=== PATIENT | male | born 1955 | race African-American/Black ===

== ENCOUNTER 2021-01-01 08:01 | Observation (INO) | payer MEDICARE, MEDICAID ==
[2021-01-01] MEDS ORDERED: Lidocaine 1% MPF 2 ML VIAL ONE (08:31)
[2021-01-01 08:58] LABS: Hemoglobin 10.9 g/dL (13.5-17.5); Mean Corpuscular HGB CONC 30.5 g/dL (32.0-36.0); Mean Corpuscular Hemoglobin 31.1 pg (27.0-33.0); Mean Platelet Volume 9.3 fl (7.4-10.4); Platelet Count 214 10x3/uL (150-450); RBC Distribution Width 14.8 % (11.5-14.5); White Blood Cell (WBC) Count 10.3 10x3/uL (3.5-10.5)
[2021-01-01 09:03] LABS: Anion Gap 15 mmol/L (10-20); BUN (Urea Nitrogen) 24 mg/dL (8.4-25.7); Calc. Creatinine Clearance 83 mL/min (70-130); Calcium 9.7 mg/dL (7.8-10.44); Carbon Dioxide 18 mmol/L (23-31); Chloride 109 mmol/L (98-107); Glucose 81 mg/dL (80-115); PTT 29.5 sec (22.0-33.0); Potassium 4.7 mmol/L (3.5-5.1); Prothrombin Time 10.9 sec (9.5-12.1); Sodium 137 mmol/L (136-145)
[2021-01-01] MEDS ORDERED: Dexamethasone 4 mg/ml Vial ONE (09:23)
[2021-01-01] MEDS ORDERED: Ondansetron PF 4 MG/2 ML Vial ONE (09:23)
[2021-01-01] MEDS ORDERED: PROPOFOL 20 ML ONE ×2 (09:23→10:10)
[2021-01-01] MEDS ORDERED: Lidocaine 1% PF 5 ML VIAL ONE (09:23)
[2021-01-01] MEDS ORDERED: Fentanyl 100 MCG/2 ML VIAL ONE ×3 (09:23→12:45)
[2021-01-01] MEDS ORDERED: Neomycin-Polymyxin 1 ML AMP ONE (09:33)
[2021-01-01] MEDS ORDERED: Glycopyrrolate 0.2 MG/ML 5 ML SYRINGE ONE (10:10)
[2021-01-01] MEDS ORDERED: PHENYLEPHRINE-NS 100 MCG/ML 10 ML SYRINGE ONE ×3 (10:51→10:55)
[2021-01-01 10:53] LABS: Bilirubin Neg (Negative); Blood, Urine 250 (Negative); Clarity Cloudy (Clear); Glucose, Urine (Dipstick) Normal (Negative); Ketone, Urine Negative (Negative); Leukocyte 500 (Negative); Nitrite Positive (Negative); Protein, Urine (Dipstick) 100 mg/dl (Neg-Trace); Urobilinogen Normal mg/dL (Less than 2)
[2021-01-01 11:08] LABS: Bacteria/HPF 3+ HPF (None Seen); Squamous Epithelial 0-3 HPF (0-3); WBC/HPF Greater Than 50 HPF (0-3)
[2021-01-01] MEDS ORDERED: CEFAZOLIN 2 GM in Premix Bag 1 BAG IVPB SCH (15:30)
[2021-01-01] MEDS ORDERED: Calcium Carbonate 500 MG TAB PO PRN (15:31)
[2021-01-01] MEDS ORDERED: Loperamide HCl 2 MG CAP PO PRN (15:33)
[2021-01-01] MEDS ORDERED: Polyethylene Glycol 3350 17 GM Packet PO PRN (15:34)
[2021-01-01] MEDS: Morphine 4 MG/ML VIAL SLOW IVP PRN ×3 (15:44→22:45)
[2021-01-01 15:52] VITALS: BMI 26.9
[2021-01-01] MEDS: CEFAZOLIN 2 GM in Premix Bag 1 BAG IVPB SCH (18:17)
[2021-01-01] MEDS: HYDROcodone/Acetaminophen 10/325 mg Tablet PO PRN (18:18)
[2021-01-01] MEDS ORDERED: Gabapentin 300 MG CAP PO SCH (21:00)
[2021-01-01] MEDS: Ascorbic Acid 500 mg Chewable Tablet PO SCH (21:37)
[2021-01-01] MEDS: Gabapentin 400 MG CAP PO SCH (21:37)
[2021-01-02] MEDS: HYDROcodone/Acetaminophen 10/325 mg Tablet PO PRN ×3 (00:36→13:38)
[2021-01-02] MEDS: Morphine 4 MG/ML VIAL SLOW IVP PRN ×5 (02:18→15:01)
[2021-01-02] MEDS: CEFAZOLIN 2 GM in Premix Bag 1 BAG IVPB SCH (02:19)
[2021-01-02 05:35] LABS: Hemoglobin 9.2 g/dL (13.5-17.5)
[2021-01-02] MEDS: Gabapentin 400 MG CAP PO SCH ×2 (07:54→15:00)
[2021-01-02] MEDS: Ascorbic Acid 500 mg Chewable Tablet PO SCH (07:57)
[2021-01-02] MEDS ORDERED: Magnesium Oxide 400 MG TAB PO SCH (09:00)
[2021-01-02] MEDS ORDERED: Cyanocobalamin (Vitamin B-12) 1,000 MCG TAB PO SCH (09:00)
[2021-01-02] MEDS ORDERED: Zinc Gluconate 50 MG TAB PO SCH (09:00)
[2021-01-02] MEDS ORDERED: Multivitamin W/ Minerals 1 TAB PO SCH (09:00)
[2021-01-02 21:04] VITALS: TEMP 99.2
[2021-01-02 21:06] VITALS: BP 107/64
== END 2021-01-02 15:52 ==
LOC: CSHSDC 08:01 → CSHTELE 14:44 → INTOOBSV 14:44
PROVIDERS: ADMIT Orthopaedic Surgery; ATTEND Orthopaedic Surgery
PROC: 0Y6C0Z2 Detachment at Right Upper Leg, Mid, Open Approach (ICD-10-PCS; principal; 2021-01-01)
DX: M00.9 Pyogenic arthritis, unspecified (principal); M86.661 Other chronic osteomyelitis, right tibia and fibula; G82.20 Paraplegia, unspecified; D64.9 Anemia, unspecified; F17.210 Nicotine dependence, cigarettes, uncomplicated; Z79.899 Other long term (current) drug therapy
CPT/HCPCS: 80048; 81001; 85014; 85018; 85027; 85610; 85730; 88307; 93005; 93010; 96374; 96375; 96376; G0378; J0690; J1100; J2270; J2405; J2704; J3010

== ENCOUNTER 2021-09-17 20:41 | Inpatient (IN) | payer MEDICARE, MEDICAID ==
[2021-09-17 22:22] LABS: #Monocytes 1.1 10x3/uL (0.0-1.1); #Neutrophils 10.9 10x3/uL (1.5-8.4); %Basophils 0.2 % (0.0-2.0); %Eosinophils 0.1 % (0.0-6.0); %Lymphocytes 10.4 % (18.0-47.0); %Monocytes 8.2 % (0.0-10.0); Hemoglobin 7.2 g/dL (13.5-17.5); Mean Corpuscular HGB CONC 30.6 g/dL (32.0-36.0); Mean Corpuscular Hemoglobin 27.9 pg (27.0-33.0); Mean Corpuscular Volume 91.1 fl (81.2-95.1); Mean Platelet Volume 8.4 fl (7.4-10.4); Platelet Count 544 10x3/uL (150-450); RBC Distribution Width 17.6 % (11.5-14.5); Red Blood Cell (RBC) Count 2.58 10x6/uL (4.32-5.72); White Blood Cell (WBC) Count 13.8 10x3/uL (3.5-10.5)
[2021-09-17] MEDS: Sodium Chloride 0.9% 1,000 ML IV SCH (22:28)
[2021-09-17 22:29] LABS: Anion Gap 15 mmol/L (10-20); BUN (Urea Nitrogen) 28 mg/dL (8.4-25.7); Calc. Creatinine Clearance 0 mL/min (70-130); Calcium 9.2 mg/dL (7.8-10.44); Chloride 114 mmol/L (98-107); Estimated GFR 85; Glucose 81 mg/dL (80-115); Magnesium 1.5 mg/dL (1.6-2.6); Potassium 5.9 mmol/L (3.5-5.1); Sodium 132 mmol/L (136-145)
[2021-09-17 22:31] LABS: Carbon Dioxide 9 mmol/L (23-31)
[2021-09-17 22:33] LABS: Troponin I Less than 0.010 ng/mL (< 0.028)
[2021-09-17 22:48] LABS: Syphilis Antibody Nonreactive (Nonreactive); Syphilis Antibody Index 0.14 S/CO (<1.00 Non-Reactive)
[2021-09-17 22:53] LABS: Thyroid Stimulating Hormone 0.776 uIU/mL (0.35-4.94)
[2021-09-18] MEDS ORDERED: Dextrose 50% Abboject 50 ML SYRINGE SLOW IVP PRN (01:29)
[2021-09-18] MEDS ORDERED: Insulin Regular 300 UNITS/3 ML VIAL IVP SCH (01:30)
[2021-09-18] MEDS ORDERED: Calcium Gluconate 4.6 MEQ in Sodium Chloride 0.9% 100 ML IVPB SCH (01:30)
[2021-09-18] MEDS ORDERED: D5W IVPB SCH (01:45)
[2021-09-18] MEDS ORDERED: MAGNESIUM SULFATE IVPB SCH (01:45)
[2021-09-18] MEDS ORDERED: Magnesium Sulfate/D5W 1 GM/100 ML BAG IVPB SCH (01:45)
[2021-09-18 02:34] VITALS: BMI 65.4
[2021-09-18] MEDS: Sodium Chloride 0.9% 1,000 ML IV SCH ×2 (03:53→10:25)
[2021-09-18 09:21] LABS: Hemoglobin 6.8 g/dL (13.5-17.5); Mean Corpuscular HGB CONC 31.3 g/dL (32.0-36.0); Mean Corpuscular Hemoglobin 28.7 pg (27.0-33.0); Mean Corpuscular Volume 91.6 fl (81.2-95.1); Mean Platelet Volume 8.1 fl (7.4-10.4); Platelet Count 357 10x3/uL (150-450); RBC Distribution Width 17.6 % (11.5-14.5); Red Blood Cell (RBC) Count 2.37 10x6/uL (4.32-5.72); White Blood Cell (WBC) Count 10.9 10x3/uL (3.5-10.5)
[2021-09-18 09:34] LABS: MDiff Complete? YES; Manual Diff?? YES
[2021-09-18 09:39] LABS: Anion Gap 13 mmol/L (10-20); BUN (Urea Nitrogen) 19 mg/dL (8.4-25.7); Calc. Creatinine Clearance 95 mL/min (70-130); Calcium 8.8 mg/dL (7.8-10.44); Carbon Dioxide 10 mmol/L (23-31); Chloride 117 mmol/L (98-107); Estimated GFR 99; Glucose 89 mg/dL (80-115); Magnesium 1.7 mg/dL (1.6-2.6); Potassium 4.6 mmol/L (3.5-5.1); Sodium 135 mmol/L (136-145)
[2021-09-18 10:03] LABS: Anisocytosis SLIGHT = 6-15 cells (100X) (0-5/hpf); Band 3 % (5-11); Lymphocytes 19 % (21-51); Metamyelocyte 1 % (0-0); Monocytes 11 % (0-10); Neutrophil 65 % (42-75); Platelet Morphology Comment Appears Adequate; Reactive Lymphocytes 1 % (0-10)
[2021-09-18 10:04] LABS: Macrocytosis SLIGHT = 6-15 cells (100X) (0-5/hpf); Microcytosis SLIGHT = 6-15 cells (100X) (0-5/hpf)
[2021-09-18] MEDS ORDERED: Iopamidol 300 61% 100 ML VIAL FS ONE (12:30)
[2021-09-18] MEDS: Enoxaparin Sodium 40 MG/0.4 ML SYRINGE SC SCH (13:49)
[2021-09-18] MEDS ORDERED: HYDROcodone/Acetaminophen 5/325 mg Tablet PO PRN (14:12)
[2021-09-18] MEDS ORDERED: Sodium Bicarbonate 100 MEQ in Dextrose 5% in Water 1,000 ML IV SCH ×2 (14:15)
[2021-09-18] MEDS ORDERED: VANCOMYCIN 1.25 GM/250 ML BAG 1.25 GM in Premix Bag 1 BAG IVPB SCH (15:00)
[2021-09-18] MEDS ORDERED: Sodium Bicarbonate 100 MEQ, Admixture Fee 1 EACH in Dextrose 5% in Water 1,000 ML IV SCH (15:00)
[2021-09-18] MEDS: Lactated Ringer's 1,000 ML IV SCH (15:21)
[2021-09-18] MEDS: cefTRIAXone\\ROCEPHIN 1 GM in Sodium Chloride 0.9% 100 ML IVPB SCH (15:21)
[2021-09-18] MEDS: Ondansetron ODT 4 MG TAB PO PRN (16:34)
[2021-09-18] MEDS ORDERED: Pantoprazole 40 MG VIAL IVP SCH (16:45)
[2021-09-18] MEDS: Sodium Bicarbonate 100 MEQ, Admixture Fee 1 EACH in Dextrose 5% in Water 1,000 ML IV SCH (17:45)
[2021-09-18] MEDS: HYDROcodone/Acetaminophen 5/325 mg Tablet PO PRN ×2 (17:48→21:25)
[2021-09-18] MEDS ORDERED: Vancomycin 1 GM in Premix Bag 1 BAG IVPB SCH (21:00)
[2021-09-19] MEDS: HYDROcodone/Acetaminophen 5/325 mg Tablet PO PRN ×5 (01:32→16:37)
[2021-09-19] MEDS: Lactated Ringer's 1,000 ML IV SCH ×2 (01:34→13:28)
[2021-09-19] MEDS: Sodium Bicarbonate 100 MEQ, Admixture Fee 1 EACH in Dextrose 5% in Water 1,000 ML IV SCH ×2 (04:45→13:22)
[2021-09-19 08:41] LABS: #Basophils 0.1 10x3/uL (0.0-0.2); #Eosinphils 0.1 10x3/uL (0.0-0.5); #Monocytes 1.2 10x3/uL (0.0-1.1); #Neutrophils 7.7 10x3/uL (1.5-8.4); %Basophils 0.4 % (0.0-2.0); %Eosinophils 0.5 % (0.0-6.0); %Lymphocytes 16.7 % (18.0-47.0); %Monocytes 10.5 % (0.0-10.0); %Neutrophils 68.5 % (40.0-75.0); Hemoglobin 7.7 g/dL (13.5-17.5); Mean Corpuscular HGB CONC 32.4 g/dL (32.0-36.0); Mean Corpuscular Hemoglobin 29.2 pg (27.0-33.0); Mean Corpuscular Volume 90.2 fl (81.2-95.1); Mean Platelet Volume 7.9 fl (7.4-10.4); Platelet Count 358 10x3/uL (150-450); RBC Distribution Width 17.3 % (11.5-14.5); Red Blood Cell (RBC) Count 2.64 10x6/uL (4.32-5.72); White Blood Cell (WBC) Count 11.3 10x3/uL (3.5-10.5)
[2021-09-19 08:43] LABS: Anion Gap 15 mmol/L (10-20); BUN (Urea Nitrogen) 15 mg/dL (8.4-25.7); Calc. Creatinine Clearance 83 mL/min (70-130); Calcium 8.8 mg/dL (7.8-10.44); Carbon Dioxide 12 mmol/L (23-31); Chloride 114 mmol/L (98-107); Estimated GFR 95; Glucose 101 mg/dL (80-115); Potassium 4.3 mmol/L (3.5-5.1); Sodium 137 mmol/L (136-145)
[2021-09-19] MEDS: Pantoprazole 40 MG VIAL IVP SCH ×2 (09:17→20:48)
[2021-09-19] MEDS: Enoxaparin Sodium 40 MG/0.4 ML SYRINGE SC SCH (09:19)
[2021-09-19] MEDS: cefTRIAXone\\ROCEPHIN 1 GM in Sodium Chloride 0.9% 100 ML IVPB SCH (13:22)
[2021-09-19] MEDS: Vancomycin HCl 750 MG in Sodium Chloride 0.9% 250 ML 250 ML IVPB SCH (16:36)
[2021-09-19] MEDS ORDERED: HYDROcodone/Acetaminophen 10/325 mg Tablet PO SCH (18:00)
[2021-09-19] MEDS: HYDROcodone/Acetaminophen 10/325 mg Tablet PO PRN (21:00)
[2021-09-20] MEDS: Ondansetron ODT 4 MG TAB PO PRN (00:18)
[2021-09-20] MEDS: HYDROcodone/Acetaminophen 10/325 mg Tablet PO PRN ×6 (01:13→20:55)
[2021-09-20] MEDS: Sodium Bicarbonate 100 MEQ, Admixture Fee 1 EACH in Dextrose 5% in Water 1,000 ML IV SCH ×3 (02:18→23:14)
[2021-09-20 05:17] LABS: Anion Gap 15 mmol/L (10-20); BUN (Urea Nitrogen) 14 mg/dL (8.4-25.7); Bilirubin, Direct 0.1 mg/dL (0.1-0.3); Bilirubin, Total 0.2 mg/dL (0.2-1.2); Calc. Creatinine Clearance 89 mL/min (70-130); Calcium 8.1 mg/dL (7.8-10.44); Carbon Dioxide 17 mmol/L (23-31); Chloride 108 mmol/L (98-107); Estimated GFR 97; Glucose 83 mg/dL (80-115); Potassium 4.1 mmol/L (3.5-5.1); Sodium 136 mmol/L (136-145)
[2021-09-20 05:18] LABS: INR-International Normal Ratio 1.1; PTT 23.1 sec (22.0-33.0); Prothrombin Time 11.4 sec (9.5-12.1)
[2021-09-20 05:29] LABS: #Basophils 0.1 10x3/uL (0.0-0.2); #Eosinphils 0.1 10x3/uL (0.0-0.5); #Monocytes 0.8 10x3/uL (0.0-1.1); #Neutrophils 6.5 10x3/uL (1.5-8.4); %Basophils 0.5 % (0.0-2.0); %Lymphocytes 17.8 % (18.0-47.0); %Monocytes 8.6 % (0.0-10.0); %Neutrophils 69.7 % (40.0-75.0); Hemoglobin 9.5 g/dL (13.5-17.5); Mean Corpuscular HGB CONC 32.8 g/dL (32.0-36.0); Mean Corpuscular Volume 88.4 fl (81.2-95.1); Platelet Count 401 10x3/uL (150-450); RBC Distribution Width 17.3 % (11.5-14.5); Red Blood Cell (RBC) Count 3.28 10x6/uL (4.32-5.72); White Blood Cell (WBC) Count 9.3 10x3/uL (3.5-10.5)
[2021-09-20 05:52] LABS: CRP (Inflammatory) 12.46 mg/dL (= or < 0.5)
[2021-09-20] MEDS: Enoxaparin Sodium 40 MG/0.4 ML SYRINGE SC SCH (09:02)
[2021-09-20] MEDS: Pantoprazole 40 MG VIAL IVP SCH ×2 (09:02→20:56)
[2021-09-20] MEDS: cefTRIAXone\\ROCEPHIN 1 GM in Sodium Chloride 0.9% 100 ML IVPB SCH (12:55)
[2021-09-20 15:20] LABS: Vancomycin, Trough 17.7 ug/mL
[2021-09-20] MEDS: Vancomycin HCl 750 MG in Sodium Chloride 0.9% 250 ML 250 ML IVPB SCH (17:02)
[2021-09-21] MEDS ORDERED: Ondansetron PF 4 MG/2 ML Vial IVP SCH (01:30)
[2021-09-21] MEDS: HYDROcodone/Acetaminophen 10/325 mg Tablet PO PRN ×5 (01:39→22:15)
[2021-09-21 05:38] LABS: #Basophils 0.1 10x3/uL (0.0-0.2); #Eosinphils 0.1 10x3/uL (0.0-0.5); #Monocytes 1.1 10x3/uL (0.0-1.1); %Basophils 0.4 % (0.0-2.0); %Eosinophils 0.4 % (0.0-6.0); %Lymphocytes 16.7 % (18.0-47.0); %Monocytes 9.6 % (0.0-10.0); %Neutrophils 71.4 % (40.0-75.0); Hemoglobin 7.7 g/dL (13.5-17.5); Mean Corpuscular HGB CONC 33.3 g/dL (32.0-36.0); Mean Corpuscular Hemoglobin 29.3 pg (27.0-33.0); Mean Corpuscular Volume 87.8 fl (81.2-95.1); Mean Platelet Volume 8.4 fl (7.4-10.4); Platelet Count 324 10x3/uL (150-450); RBC Distribution Width 17.1 % (11.5-14.5); Red Blood Cell (RBC) Count 2.63 10x6/uL (4.32-5.72); White Blood Cell (WBC) Count 11.2 10x3/uL (3.5-10.5)
[2021-09-21 05:59] LABS: Anion Gap 15 mmol/L (10-20); BUN (Urea Nitrogen) 11 mg/dL (8.4-25.7); Calc. Creatinine Clearance 103 mL/min (70-130); Calcium 7.6 mg/dL (7.8-10.44); Carbon Dioxide 24 mmol/L (23-31); Chloride 101 mmol/L (98-107); Estimated GFR 101; Glucose 83 mg/dL (80-115); Potassium 3.8 mmol/L (3.5-5.1); Sodium 136 mmol/L (136-145)
[2021-09-21] MEDS: Fluconazole 100 MG TAB PO SCH (09:40)
[2021-09-21] MEDS: Pantoprazole 40 MG VIAL IVP SCH (09:40)
[2021-09-21] MEDS: Ferrous Gluconate 324 MG TAB PO SCH (09:40)
[2021-09-21] MEDS: Enoxaparin Sodium 40 MG/0.4 ML SYRINGE SC SCH (09:41)
[2021-09-21 17:13] LABS: A/G Ratio 0.3 (0.7-1.7); Alpha 1 0.5 g/dL (0.0-0.4); Alpha 2 1.2 g/dL (0.4-1.0); Beta 1.5 g/dL (0.7-1.3); Gamma 2.7 g/dL (0.4-1.8); Globulin, Total 5.9 g/dL (2.2-3.9); M-Spike Not Observed g/dL (Not Observed); Protein Electrophoresis Intrp Note: (.)
[2021-09-21] MEDS: cefTRIAXone\\ROCEPHIN 1 GM in Sodium Chloride 0.9% 100 ML IVPB SCH (17:57)
[2021-09-21] MEDS ORDERED: Morphine 2 MG/ML VIAL SLOW IVP SCH (18:30)
[2021-09-21] MEDS: Doxycycline 100 MG CAP PO SCH (21:09)
[2021-09-21] MEDS: Vancomycin HCl 750 MG in Sodium Chloride 0.9% 250 ML 250 ML IVPB SCH (21:34)
[2021-09-22 05:36] LABS: #Eosinphils 0.1 10x3/uL (0.0-0.5); #Monocytes 0.9 10x3/uL (0.0-1.1); #Neutrophils 6.8 10x3/uL (1.5-8.4); %Basophils 0.3 % (0.0-2.0); %Eosinophils 0.6 % (0.0-6.0); %Monocytes 9.3 % (0.0-10.0); %Neutrophils 67.4 % (40.0-75.0); Mean Corpuscular HGB CONC 32.9 g/dL (32.0-36.0); Mean Corpuscular Hemoglobin 29.1 pg (27.0-33.0); Mean Corpuscular Volume 88.4 fl (81.2-95.1); Platelet Count 296 10x3/uL (150-450); RBC Distribution Width 17.1 % (11.5-14.5); Red Blood Cell (RBC) Count 2.75 10x6/uL (4.32-5.72); White Blood Cell (WBC) Count 10.1 10x3/uL (3.5-10.5)
[2021-09-22 06:03] LABS: Anion Gap 16 mmol/L (10-20); BUN (Urea Nitrogen) 11 mg/dL (8.4-25.7); Calc. Creatinine Clearance 99 mL/min (70-130); Calcium 7.4 mg/dL (7.8-10.44); Carbon Dioxide 24 mmol/L (23-31); Chloride 100 mmol/L (98-107); Estimated GFR 100; Glucose 68 mg/dL (80-115); Potassium 3.8 mmol/L (3.5-5.1); Sodium 136 mmol/L (136-145)
[2021-09-22] MEDS: HYDROcodone/Acetaminophen 10/325 mg Tablet PO PRN ×2 (06:20→08:39)
[2021-09-22 08:13] VITALS: BP 146/70; TEMP 98.1
[2021-09-22] MEDS: Doxycycline 100 MG CAP PO SCH (08:39)
[2021-09-22] MEDS: Fluconazole 100 MG TAB PO SCH (08:39)
[2021-09-22] MEDS: Enoxaparin Sodium 40 MG/0.4 ML SYRINGE SC SCH (08:39)
[2021-09-22] MEDS: Ferrous Gluconate 324 MG TAB PO SCH (08:39)
[2021-09-22 15:13] LABS: Albumin-Ur 17.2 % (.); Alpha 2 - Ur 18.5 % (.); Gamma-Ur 37.3 % (.); M-Spike,% Not Observed % (Not Observed); Protein, Urine 71.6 mg/dL (Not Estab.)
== END 2021-09-22 09:10 | disposition home or self-care (01) | DRG 871 ==
LOC: CSHTELE 20:41 → OBSVTOIN 21:26
PROVIDERS: ADMIT Family Medicine; ATTEND Hospitalist
PROC: 3E03329 Introduction of Other Anti-infective into Peripheral Vein, Percutaneous Approach (ICD-10-PCS; 2021-09-17)
PROC: 30233N1 Transfusion of Nonautologous Red Blood Cells into Peripheral Vein, Percutaneous Approach (ICD-10-PCS; principal; 2021-09-18)
PROC: 0T2BX0Z Change Drainage Device in Bladder, External Approach (ICD-10-PCS; 2021-09-19)
DX: A41.9 Sepsis, unspecified organism (principal); L89.154 Pressure ulcer of sacral region, stage 4; L89.893 Pressure ulcer of other site, stage 3; L89.894 Pressure ulcer of other site, stage 4; G93.41 Metabolic encephalopathy; G82.20 Paraplegia, unspecified; N17.9 Acute kidney failure, unspecified; E87.2 Acidosis; R04.2 Hemoptysis; E87.1 Hypo-osmolality and hyponatremia; N39.0 Urinary tract infection, site not specified; F17.210 Nicotine dependence, cigarettes, uncomplicated; I73.9 Peripheral vascular disease, unspecified; E87.5 Hyperkalemia; D63.8 Anemia in other chronic diseases classified elsewhere; E87.6 Hypokalemia; B96.89 Other specified bacterial agents as the cause of diseases classified elsewhere; B95.62 Methicillin resistant Staphylococcus aureus infection as the cause of diseases classified elsewhere; Z20.822 Contact with and (suspected) exposure to COVID-19; D50.9 Iron deficiency anemia, unspecified; Z91.018 Allergy to other foods; Z97.8 Presence of other specified devices; Z89.619 Acquired absence of unspecified leg above knee; Z98.890 Other specified postprocedural states; Z93.3 Colostomy status
CPT/HCPCS: 36415; 36416; 36430; 71045; 74177; 80048; 80202; 82247; 82248; 82274; 82607; 82746; 83010; 83615; 83735; 84155; 84165; 84166; 84443; 84484; 85025; 85046; 85610; 85652; 85730; 86140; 86780; 86850; 86870; 86900; 86901; 86922; 87077; 87086; 87186; 87324; 87449; 97139; C9113; J0610; J0696; J1650; J1815; J2405; J3370; J3475; J3490; J7050; J7070; J7120; J7999; P9016; Q0162; Q9967; U0003; U0005

== ENCOUNTER 2021-10-06 16:34 | Emergency (ER) | payer MEDICARE, MEDICAID ==
[2021-10-06] MEDS ORDERED: Dextrose 50% Abboject 50 ML SYRINGE ONE ×2 (17:00→18:29)
[2021-10-06 17:26] LABS: #Basophils 0.1 10x3/uL (0.0-0.2); #Monocytes 1.5 10x3/uL (0.0-1.1); #Neutrophils 9.4 10x3/uL (1.5-8.4); %Basophils 0.4 % (0.0-2.0); %Eosinophils 0.3 % (0.0-6.0); %Lymphocytes 14.3 % (18.0-47.0); %Monocytes 11.2 % (0.0-10.0); %Neutrophils 72.6 % (40.0-75.0); Hemoglobin 7.2 g/dL (13.5-17.5); Mean Corpuscular Hemoglobin 28.7 pg (27.0-33.0); Mean Corpuscular Volume 92.4 fl (81.2-95.1); Mean Platelet Volume 8.1 fl (7.4-10.4); Platelet Count 350 10x3/uL (150-450); RBC Distribution Width 17.4 % (11.5-14.5); Red Blood Cell (RBC) Count 2.51 10x6/uL (4.32-5.72)
[2021-10-06 17:42] LABS: ALT (SGPT) 10 U/L (8-55); AST (SGOT) 15 U/L (5-34); Albumin 2.8 g/dL (3.4-4.8); Alkaline Phosphatase 129 U/L (40-110); Anion Gap 18 mmol/L (10-20); BUN (Urea Nitrogen) 33 mg/dL (8.4-25.7); Bilirubin, Total 0.2 mg/dL (0.2-1.2); CK (CPK) 35 U/L (30-200); Calc. Creatinine Clearance 0 mL/min (70-130); Calcium 9.1 mg/dL (7.8-10.44); Chloride 101 mmol/L (98-107); Estimated GFR 60; Globulin 5.7 g/dL (2.4-3.5); Protein, Total 8.5 g/dL (5.8-8.1); Sodium 121 mmol/L (136-145)
[2021-10-06 17:48] LABS: Carbon Dioxide 9 mmol/L (23-31); Glucose 53 mg/dL (80-115); Potassium 7.2 mmol/L (3.5-5.1)
[2021-10-06] MEDS ORDERED: Cefepime 2 GM VIAL ONE ×2 (17:56→18:29)
[2021-10-06] MEDS ORDERED: Albuterol Sulfate 2.5 mg/3 ml Neb ONE (18:23)
[2021-10-06] MEDS ORDERED: Furosemide 100 MG/10 ML VIAL ONE (18:28)
[2021-10-06] MEDS ORDERED: Hydrocortisone Sod Succ/PF 100 mg/2 ml Vial ONE (18:28)
[2021-10-06] MEDS ORDERED: Calcium Chloride 1 GM/10 ML Abboject SYRINGE ONE ×2 (18:29)
[2021-10-06] MEDS ORDERED: Insulin Regular 300 UNITS/3 ML VIAL ONE (18:30)
[2021-10-06] MEDS ORDERED: Clindamycin/D5W 900 MG in Premix Bag 1 BAG IVPB SCH (18:30)
[2021-10-06] MEDS ORDERED: Sodium Bicarbonate 150 MEQ in Dextrose 5% in Water 1,000 ML IV SCH (18:45)
[2021-10-06 18:47] LABS: Bilirubin Neg (Negative); Blood, Urine 10 (Negative); Clarity Clear (Clear); Glucose, Urine (Dipstick) Normal (Negative); Ketone, Urine Negative (Negative); Leukocyte 100 (Negative); Nitrite Negative (Negative); Protein, Urine (Dipstick) 15 mg/dl (Neg-Trace); Urobilinogen Normal mg/dL (Less than 2)
[2021-10-06 19:23] LABS: Bacteria/HPF Rare-Few HPF (None Seen); Mucous/LPF Rare LPF (<2+); RBC/HPF 0-3 HPF (0-3); Squamous Epithelial 0-3 HPF (0-3)
[2021-10-06 19:24] LABS: SARS-CoV-2 NAA Rapid Test Not Detected (NotDetected)
[2021-10-06 20:24] LABS: INR-International Normal Ratio 1.1; PTT 37.9 sec (22.0-33.0); Prothrombin Time 11.4 sec (9.5-12.1)
[2021-10-06 21:27] LABS: BUN (Urea Nitrogen) 17 mg/dL (8.4-25.7); Calc. Creatinine Clearance 0 mL/min (70-130); Carbon Dioxide 8 mmol/L (23-31)
[2021-10-06 23:23] LABS: Anion Gap 15 mmol/L (10-20); BUN (Urea Nitrogen) 31 mg/dL (8.4-25.7); Calc. Creatinine Clearance 0 mL/min (70-130); Calcium 10.2 mg/dL (7.8-10.44); Carbon Dioxide 10 mmol/L (23-31); Chloride 104 mmol/L (98-107); Estimated GFR 63; Glucose 79 mg/dL (80-115); Sodium 123 mmol/L (136-145)
[2021-10-06 23:30] LABS: Sodium 123 mmol/L (136-145)
[2021-10-06 23:31] LABS: Potassium 5.7 mmol/L (3.5-5.1)
[2021-10-06 23:32] LABS: Anion Gap 18 mmol/L (10-20); Chloride 103 mmol/L (98-107)
[2021-10-06 23:33] LABS: Estimated GFR 58
[2021-10-06 23:34] LABS: Glucose 66 mg/dL (80-115)
[2021-10-06 23:35] LABS: Calcium 10.5 mg/dL (7.8-10.44)
== END 2021-10-06 21:53 | disposition short-term general hospital (02) ==
LOC: CSHERS 16:34
DX: A41.9 Sepsis, unspecified organism (principal); E87.5 Hyperkalemia; E27.2 Addisonian crisis; Z20.822 Contact with and (suspected) exposure to COVID-19; F17.210 Nicotine dependence, cigarettes, uncomplicated
CPT/HCPCS: 36415; 36416; 71045; 74177; 81003; 81015; 82550; 83605; 84484; 85025; 85610; 85730; 87040; 93005; 94644; 94760; J0692; J1720; J1815; J1940; J3370; J3490; J7611; J7999

== ENCOUNTER 2021-10-13 11:50 | Inpatient (IN) | payer MEDICARE, MEDICAID ==
[2021-10-13 13:00] LABS: Phosphorus 5.5 mg/dL (2.3-4.7)
[2021-10-13 13:02] LABS: ALT (SGPT) 9 U/L (8-55); AST (SGOT) 9 U/L (5-34); Albumin 2.5 g/dL (3.4-4.8); Alkaline Phosphatase 89 U/L (40-110); Anion Gap 21 mmol/L (10-20); BUN (Urea Nitrogen) 64 mg/dL (8.4-25.7); Bilirubin, Total 0.1 mg/dL (0.2-1.2); Calc. Creatinine Clearance 0 mL/min (70-130); Calcium 7.5 mg/dL (7.8-10.44); Chloride 105 mmol/L (98-107); Estimated GFR 11; Globulin 4.4 g/dL (2.4-3.5); Magnesium 1.8 mg/dL (1.6-2.6); Potassium 5.1 mmol/L (3.5-5.1); Protein, Total 6.9 g/dL (5.8-8.1); Sodium 129 mmol/L (136-145)
[2021-10-13 13:04] LABS: Carbon Dioxide 8 mmol/L (23-31); Glucose 53 mg/dL (80-115)
[2021-10-13] MEDS ORDERED: Dextrose 50% Abboject 50 ML SYRINGE ONE (13:17)
[2021-10-13] MEDS ORDERED: Sodium Bicarbonate 150 MEQ, Admixture Fee 1 EACH in Dextrose 5% in Water 1,000 ML IV SCH (14:00)
[2021-10-13] MEDS ORDERED: Sodium Bicarb 50 MEQ/50 ML Abboject 8.4% SYRINGE ONE (14:00)
[2021-10-13] MEDS ORDERED: Sodium Bicarb 50 MEQ/50 ML VIAL ONE (14:03)
[2021-10-13 14:27] LABS: SARS-CoV-2 NAA Rapid Test Not Detected (NotDetected)
[2021-10-13 15:04] VITALS: BMI 25.9
[2021-10-13 15:52] LABS: Lactic Acid 1.6 mmol/L (0.5-2.2)
[2021-10-13 16:03] LABS: Troponin I 0.012 ng/mL (< 0.028)
[2021-10-13] MEDS ORDERED: SODIUM CHLORIDE IVPB SCH (18:00)
[2021-10-13] MEDS ORDERED: ADMIXTURE FEE IVPB SCH (18:00)
[2021-10-13] MEDS ORDERED: CALCIUM GLUCONATE IVPB SCH (18:00)
[2021-10-13 18:41] LABS: Anion Gap 21 mmol/L (10-20); BUN (Urea Nitrogen) 63 mg/dL (8.4-25.7); Calc. Creatinine Clearance 13 mL/min (70-130); Calcium 7.6 mg/dL (7.8-10.44); Carbon Dioxide 11 mmol/L (23-31); Chloride 104 mmol/L (98-107); Estimated GFR 12; Glucose 125 mg/dL (80-115); Potassium 5.6 mmol/L (3.5-5.1); Sodium 130 mmol/L (136-145)
[2021-10-13 18:47] LABS: Hemoglobin 8.4 g/dL (13.5-17.5); Mean Corpuscular Hemoglobin 28.4 pg (27.0-33.0); Mean Corpuscular Volume 94.6 fl (81.2-95.1); Mean Platelet Volume 8.4 fl (7.4-10.4); Platelet Count 340 10x3/uL (150-450); RBC Distribution Width 17.8 % (11.5-14.5); Red Blood Cell (RBC) Count 2.96 10x6/uL (4.32-5.72)
[2021-10-13 18:48] LABS: Troponin I 0.015 ng/mL (< 0.028)
[2021-10-13 18:49] LABS: MDiff Complete? YES
[2021-10-13 19:08] LABS: Anisocytosis SLIGHT = 6-15 cells (100X) (0-5/hpf); Band 2 % (5-11); Eosinophils 1 % (0-10); Lymphocytes 19 % (21-51); Monocytes 8 % (0-10); Neutrophil 70 % (42-75); Platelet Morphology Comment Appears Adequate
[2021-10-13] MEDS ORDERED: Vancomycin HCl 1 GM in Sodium Chloride 0.9% 250 ML 250 ML IVPB SCH (20:15)
[2021-10-13] MEDS: Cefepime 1 GM in Sodium Chloride 0.9% 100 ML IVPB SCH (20:19)
[2021-10-13] MEDS: Vancomycin HCl 1 GM in Sodium Chloride 0.9% 250 ML 250 ML IVPB SCH (20:21)
[2021-10-13] MEDS ORDERED: Cefepime 1 GM in Sodium Chloride 0.9% 100 ML IVPB SCH (21:00)
[2021-10-14 03:59] LABS: Lactic Acid 0.6 mmol/L (0.5-2.2)
[2021-10-14] MEDS: Ferrous Sulfate 325 MG TAB PO SCH ×2 (08:07→16:53)
[2021-10-14] MEDS: Cyanocobalamin (Vitamin B-12) 1,000 MCG TAB PO SCH (08:07)
[2021-10-14] MEDS: Multivitamin W/ Minerals 1 TAB PO SCH (08:07)
[2021-10-14] MEDS ORDERED: oxyCODONE 5 MG TAB PO PRN (08:59)
[2021-10-14] MEDS: Cefepime 1 GM in Sodium Chloride 0.9% 100 ML IVPB SCH ×2 (09:00→21:22)
[2021-10-14] MEDS: Acetaminophen 325 MG TAB PO SCH ×3 (10:23→21:52)
[2021-10-14 10:59] LABS: Albumin 2.5 g/dL (3.4-4.8); Anion Gap 16 mmol/L (10-20); BUN (Urea Nitrogen) 62 mg/dL (8.4-25.7); Calc. Creatinine Clearance 14 mL/min (70-130); Calcium 8.4 mg/dL (7.8-10.44); Carbon Dioxide 17 mmol/L (23-31); Chloride 102 mmol/L (98-107); Estimated GFR 13; Glucose 106 mg/dL (80-115); Potassium 5.1 mmol/L (3.5-5.1); Sodium 130 mmol/L (136-145)
[2021-10-14] MEDS: Sodium Bicarbonate 150 MEQ, Admixture Fee 1 EACH in Dextrose 5% in Water 1,000 ML IVP SCH (12:21)
[2021-10-14] MEDS: HYDROcodone/Acetaminophen 10/325 mg Tablet PO PRN ×2 (14:28→21:20)
[2021-10-14] MEDS ORDERED: Vancomycin HCl 1 GM in Sodium Chloride 0.9% 250 ML 250 ML IVPB SCH (19:00)
[2021-10-14] MEDS: Heparin 5,000 UNITS/ML VIAL SC SCH (21:22)
[2021-10-14] MEDS: Vancomycin HCl 1 GM in Sodium Chloride 0.9% 250 ML 250 ML IVPB SCH (21:51)
[2021-10-15] MEDS: Sodium Bicarbonate 150 MEQ, Admixture Fee 1 EACH in Dextrose 5% in Water 1,000 ML IVP SCH ×3 (00:18→18:00)
[2021-10-15 03:56] LABS: Lactic Acid 1.5 mmol/L (0.5-2.2)
[2021-10-15 04:00] LABS: #Eosinphils 0.2 10x3/uL (0.0-0.5); #Monocytes 0.9 10x3/uL (0.0-1.1); #Neutrophils 5.9 10x3/uL (1.5-8.4); %Basophils 0.3 % (0.0-2.0); %Eosinophils 2.2 % (0.0-6.0); %Lymphocytes 19.4 % (18.0-47.0); %Monocytes 9.5 % (0.0-10.0); %Neutrophils 65.9 % (40.0-75.0); Hemoglobin 7.6 g/dL (13.5-17.5); Mean Corpuscular HGB CONC 32.5 g/dL (32.0-36.0); Mean Corpuscular Hemoglobin 28.7 pg (27.0-33.0); Mean Corpuscular Volume 88.3 fl (81.2-95.1); Mean Platelet Volume 8.9 fl (7.4-10.4); Platelet Count 230 10x3/uL (150-450); RBC Distribution Width 17.7 % (11.5-14.5); Red Blood Cell (RBC) Count 2.65 10x6/uL (4.32-5.72)
[2021-10-15 04:06] LABS: Anion Gap 19 mmol/L (10-20); BUN (Urea Nitrogen) 58 mg/dL (8.4-25.7); Calc. Creatinine Clearance 20 mL/min (70-130); Calcium 7.3 mg/dL (7.8-10.44); Carbon Dioxide 18 mmol/L (23-31); Chloride 100 mmol/L (98-107); Estimated GFR 19; Glucose 94 mg/dL (80-115); Magnesium 1.2 mg/dL (1.6-2.6); Potassium 3.9 mmol/L (3.5-5.1); Sodium 133 mmol/L (136-145)
[2021-10-15 04:21] LABS: Platelet Clumps SLIGHT; Platelet Morphology Comment Appears Adequate
[2021-10-15] MEDS: Heparin 5,000 UNITS/ML VIAL SC SCH ×2 (08:41→21:44)
[2021-10-15] MEDS: Magnesium 2 GM/50 ML(in water) 2 GM in Premix Bag 1 BAG IVPB SCH ×2 (08:41→09:53)
[2021-10-15] MEDS: Acetaminophen 325 MG TAB PO SCH ×3 (08:42→20:13)
[2021-10-15] MEDS: Multivitamin W/ Minerals 1 TAB PO SCH (08:42)
[2021-10-15] MEDS: Cefepime 1 GM in Sodium Chloride 0.9% 100 ML IVPB SCH ×2 (08:42→21:32)
[2021-10-15] MEDS: Cyanocobalamin (Vitamin B-12) 1,000 MCG TAB PO SCH (08:42)
[2021-10-15] MEDS: Ferrous Sulfate 325 MG TAB PO SCH ×2 (08:42→17:01)
[2021-10-15] MEDS: HYDROcodone/Acetaminophen 10/325 mg Tablet PO PRN ×2 (11:57→21:43)
[2021-10-15 20:33] LABS: Vancomycin, Trough 64.2 ug/mL
[2021-10-16] MEDS: Sodium Bicarbonate 150 MEQ, Admixture Fee 1 EACH in Dextrose 5% in Water 1,000 ML IVP SCH ×2 (04:10→08:57)
[2021-10-16 04:33] LABS: #Eosinphils 0.1 10x3/uL (0.0-0.5); #Neutrophils 4.8 10x3/uL (1.5-8.4); %Basophils 0.3 % (0.0-2.0); %Eosinophils 1.2 % (0.0-6.0); %Monocytes 13.5 % (0.0-10.0); %Neutrophils 63.1 % (40.0-75.0); Mean Corpuscular HGB CONC 32.9 g/dL (32.0-36.0); Mean Corpuscular Hemoglobin 28.6 pg (27.0-33.0); Mean Corpuscular Volume 86.9 fl (81.2-95.1); Mean Platelet Volume 8.3 fl (7.4-10.4); Platelet Count 216 10x3/uL (150-450); RBC Distribution Width 16.9 % (11.5-14.5); Red Blood Cell (RBC) Count 2.45 10x6/uL (4.32-5.72); White Blood Cell (WBC) Count 7.5 10x3/uL (3.5-10.5)
[2021-10-16 04:52] LABS: Anion Gap 13 mmol/L (10-20); BUN (Urea Nitrogen) 49 mg/dL (8.4-25.7); Calc. Creatinine Clearance 38 mL/min (70-130); Calcium 7.3 mg/dL (7.8-10.44); Carbon Dioxide 35 mmol/L (23-31); Chloride 91 mmol/L (98-107); Estimated GFR 42; Glucose 114 mg/dL (80-115); Magnesium 2.2 mg/dL (1.6-2.6); Potassium 3.2 mmol/L (3.5-5.1); Sodium 136 mmol/L (136-145)
[2021-10-16] MEDS ORDERED: Potassium Chloride 20 MEQ TAB PO SCH (06:00)
[2021-10-16] MEDS: Sodium Chloride 0.9% 1,000 ML IV SCH ×2 (07:40→13:46)
[2021-10-16] MEDS: Cefepime 1 GM in Sodium Chloride 0.9% 100 ML IVPB SCH ×2 (07:58→20:02)
[2021-10-16] MEDS: Heparin 5,000 UNITS/ML VIAL SC SCH ×2 (07:58→20:02)
[2021-10-16] MEDS: Cyanocobalamin (Vitamin B-12) 1,000 MCG TAB PO SCH (07:59)
[2021-10-16] MEDS: Ferrous Sulfate 325 MG TAB PO SCH ×2 (07:59→18:29)
[2021-10-16] MEDS: Acetaminophen 325 MG TAB PO SCH ×2 (07:59→14:35)
[2021-10-16] MEDS: Multivitamin W/ Minerals 1 TAB PO SCH (07:59)
[2021-10-16] MEDS: Vancomycin HCl 1 GM in Sodium Chloride 0.9% 250 ML 250 ML IVPB SCH (08:57)
[2021-10-16] MEDS: Calcium Carbonate 600 MG + Vit D TAB PO SCH (09:13)
[2021-10-16 13:30] LABS: Bilirubin Neg (Negative); Blood, Urine 50 (Negative); Clarity Slightly Cloudy (Clear); Glucose, Urine (Dipstick) Normal (Negative); Ketone, Urine Negative (Negative); Leukocyte 500 (Negative); Nitrite Negative (Negative); Protein, Urine (Dipstick) 100 mg/dl (Neg-Trace); Urobilinogen Normal mg/dL (Less than 2)
[2021-10-16 13:31] LABS: Urine Culture Reflex No No
[2021-10-16 13:43] LABS: Bacteria/HPF 2+ HPF (None Seen)
[2021-10-16 13:44] LABS: Squamous Epithelial 0-3 HPF (0-3); Transitional Epithelial 0-3 HPF (None Seen)
[2021-10-16 19:11] LABS: Vancomycin, Random 35.4 ug/mL (See Comment)
[2021-10-16] MEDS ORDERED: Sodium Chloride 0.9% 100 ML ONE (20:02)
[2021-10-16] MEDS ORDERED: Cefepime 1 GM VIAL ONE (20:02)
[2021-10-17] MEDS ORDERED: Ondansetron PF 4 MG/2 ML Vial IVP PRN (00:33)
[2021-10-17] MEDS: Sodium Chloride 0.9% 1,000 ML IV SCH ×4 (02:15→20:55)
[2021-10-17 04:45] LABS: #Monocytes 1.4 10x3/uL (0.0-1.1); #Neutrophils 10.2 10x3/uL (1.5-8.4); %Basophils 0.2 % (0.0-2.0); %Eosinophils 0.2 % (0.0-6.0); %Lymphocytes 11.4 % (18.0-47.0); %Monocytes 10.4 % (0.0-10.0); %Neutrophils 76.8 % (40.0-75.0); Hemoglobin 7.8 g/dL (13.5-17.5); Mean Corpuscular HGB CONC 31.2 g/dL (32.0-36.0); Mean Corpuscular Volume 89.6 fl (81.2-95.1); Mean Platelet Volume 8.6 fl (7.4-10.4); Platelet Count 225 10x3/uL (150-450); Red Blood Cell (RBC) Count 2.79 10x6/uL (4.32-5.72); White Blood Cell (WBC) Count 13.2 10x3/uL (3.5-10.5)
[2021-10-17 05:10] LABS: Anion Gap 16 mmol/L (10-20); BUN (Urea Nitrogen) 43 mg/dL (8.4-25.7); Calc. Creatinine Clearance 48 mL/min (70-130); Calcium 7.4 mg/dL (7.8-10.44); Carbon Dioxide 30 mmol/L (23-31); Chloride 99 mmol/L (98-107); Estimated GFR 56; Glucose 84 mg/dL (80-115); Magnesium 1.8 mg/dL (1.6-2.6); Potassium 3.6 mmol/L (3.5-5.1); Sodium 141 mmol/L (136-145)
[2021-10-17] MEDS: Acetaminophen 325 MG TAB PO SCH ×4 (07:42→20:55)
[2021-10-17] MEDS: Cefepime 1 GM in Sodium Chloride 0.9% 100 ML IVPB SCH ×2 (07:42→20:55)
[2021-10-17] MEDS: Calcium Carbonate 600 MG + Vit D TAB PO SCH (07:58)
[2021-10-17] MEDS: Heparin 5,000 UNITS/ML VIAL SC SCH ×2 (07:58→20:55)
[2021-10-17] MEDS: Cyanocobalamin (Vitamin B-12) 1,000 MCG TAB PO SCH (07:58)
[2021-10-17] MEDS: Multivitamin W/ Minerals 1 TAB PO SCH (07:58)
[2021-10-17] MEDS: Ferrous Sulfate 325 MG TAB PO SCH ×2 (09:44→16:11)
[2021-10-17] MEDS ORDERED: levETIRAcetam 500 MG TAB PO SCH (12:00)
[2021-10-17] MEDS: levETIRAcetam 500 MG TAB PO SCH (20:55)
[2021-10-17] MEDS ORDERED: VANCOMYCIN IVPB PRN (21:00)
[2021-10-18 04:41] LABS: Hemoglobin 7.9 g/dL (13.5-17.5); Mean Corpuscular HGB CONC 31.7 g/dL (32.0-36.0); Mean Corpuscular Hemoglobin 28.5 pg (27.0-33.0); Mean Corpuscular Volume 89.9 fl (81.2-95.1); Mean Platelet Volume 8.4 fl (7.4-10.4); Platelet Count 191 10x3/uL (150-450); RBC Distribution Width 17.2 % (11.5-14.5); Red Blood Cell (RBC) Count 2.77 10x6/uL (4.32-5.72); White Blood Cell (WBC) Count 13.3 10x3/uL (3.5-10.5)
[2021-10-18 04:57] LABS: Anion Gap 17 mmol/L (10-20); BUN (Urea Nitrogen) 36 mg/dL (8.4-25.7); Calc. Creatinine Clearance 48 mL/min (70-130); Calcium 7.2 mg/dL (7.8-10.44); Carbon Dioxide 23 mmol/L (23-31); Chloride 107 mmol/L (98-107); Estimated GFR 56; Glucose 79 mg/dL (80-115); Magnesium 1.4 mg/dL (1.6-2.6); Phosphorus 2.6 mg/dL (2.3-4.7); Potassium 3.3 mmol/L (3.5-5.1); Sodium 144 mmol/L (136-145)
[2021-10-18] MEDS: Sodium Chloride 0.9% 1,000 ML IV SCH (05:49)
[2021-10-18] MEDS ORDERED: Magnesium Sulfate 4 GM in Sodium Chloride 0.9% 250 ML 250 ML IVPB SCH (07:00)
[2021-10-18] MEDS: Magnesium 2 GM/50 ML(in water) 2 GM in Premix Bag 1 BAG IVPB SCH ×2 (07:43→08:12)
[2021-10-18] MEDS: Lactated Ringer's 1,000 ML IV SCH ×3 (07:43→23:00)
[2021-10-18] MEDS: Heparin 5,000 UNITS/ML VIAL SC SCH ×2 (08:10→21:53)
[2021-10-18] MEDS: Multivitamin W/ Minerals 1 TAB PO SCH (08:11)
[2021-10-18] MEDS: Ferrous Sulfate 325 MG TAB PO SCH ×2 (08:11→18:02)
[2021-10-18] MEDS: Magnesium Oxide 400 MG TAB PO SCH (08:11)
[2021-10-18] MEDS: Calcium Carbonate 600 MG + Vit D TAB PO SCH (08:11)
[2021-10-18] MEDS: levETIRAcetam 500 MG TAB PO SCH ×2 (08:11→21:53)
[2021-10-18] MEDS: Potassium Chloride 20 MEQ TAB PO SCH (08:11)
[2021-10-18] MEDS: Cyanocobalamin (Vitamin B-12) 1,000 MCG TAB PO SCH (08:11)
[2021-10-18] MEDS: Cefepime 1 GM in Sodium Chloride 0.9% 100 ML IVPB SCH ×2 (08:11→21:53)
[2021-10-18] MEDS: Acetaminophen 325 MG TAB PO SCH ×3 (08:12→21:54)
[2021-10-18 19:10] LABS: Vancomycin, Trough 18.6 ug/mL
[2021-10-19] MEDS: HYDROcodone/Acetaminophen 10/325 mg Tablet PO PRN ×3 (05:02→20:00)
[2021-10-19 05:39] LABS: Anion Gap 17 mmol/L (10-20); BUN (Urea Nitrogen) 32 mg/dL (8.4-25.7); BUN/Creatinine Ratio 23.88; Calc. Creatinine Clearance 50 mL/min (70-130); Calcium 7.7 mg/dL (7.8-10.44); Carbon Dioxide 23 mmol/L (23-31); Chloride 110 mmol/L (98-107); Estimated GFR 59; Glucose 79 mg/dL (80-115); Phosphorus 2.2 mg/dL (2.3-4.7); Potassium 3.9 mmol/L (3.5-5.1); Sodium 146 mmol/L (136-145)
[2021-10-19] MEDS ORDERED: Vancomycin HCl 500 MG in Sodium Chloride 0.9% 100 ML IVPB SCH (06:00)
[2021-10-19] MEDS: Albumin 25% 25 GM/100 ML BOT IVPB SCH ×3 (06:27→23:07)
[2021-10-19] MEDS: Cyanocobalamin (Vitamin B-12) 1,000 MCG TAB PO SCH (09:25)
[2021-10-19] MEDS: Acetaminophen 325 MG TAB PO SCH ×3 (09:25→20:01)
[2021-10-19] MEDS: Magnesium Oxide 400 MG TAB PO SCH (09:27)
[2021-10-19] MEDS: Cefepime 1 GM in Sodium Chloride 0.9% 100 ML IVPB SCH ×2 (09:28→20:04)
[2021-10-19] MEDS: Ferrous Sulfate 325 MG TAB PO SCH ×2 (09:28→15:57)
[2021-10-19] MEDS: Calcium Carbonate 600 MG + Vit D TAB PO SCH (09:29)
[2021-10-19] MEDS: Heparin 5,000 UNITS/ML VIAL SC SCH ×2 (09:29→20:02)
[2021-10-19] MEDS: PHOS-NAK 1 PKT PACK PO SCH ×3 (09:30→20:04)
[2021-10-19] MEDS: levETIRAcetam 500 MG TAB PO SCH ×2 (09:30→20:02)
[2021-10-19] MEDS: Lactated Ringer's 1,000 ML IV SCH ×2 (09:31→14:00)
[2021-10-19] MEDS: Multivitamin W/ Minerals 1 TAB PO SCH (09:31)
[2021-10-19] MEDS: Potassium Chloride 20 MEQ TAB PO SCH (09:32)
[2021-10-20] MEDS: HYDROcodone/Acetaminophen 10/325 mg Tablet PO PRN ×3 (02:21→13:00)
[2021-10-20] MEDS: Lactated Ringer's 1,000 ML IV SCH (02:21)
[2021-10-20] MEDS ORDERED: Morphine 2 MG/ML VIAL SLOW IVP SCH ×2 (04:30→06:45)
[2021-10-20 05:16] LABS: Hemoglobin 6.6 g/dL (13.5-17.5); Mean Corpuscular HGB CONC 30.7 g/dL (32.0-36.0); Mean Corpuscular Hemoglobin 28.7 pg (27.0-33.0); Mean Corpuscular Volume 93.5 fl (81.2-95.1); Platelet Count 179 10x3/uL (150-450); RBC Distribution Width 17.7 % (11.5-14.5); White Blood Cell (WBC) Count 10.7 10x3/uL (3.5-10.5)
[2021-10-20 05:30] LABS: Albumin 2.9 g/dL (3.4-4.8); Anion Gap 16 mmol/L (10-20); BUN (Urea Nitrogen) 34 mg/dL (8.4-25.7); BUN/Creatinine Ratio 27.42; Calc. Creatinine Clearance 54 mL/min (70-130); Calcium 8.1 mg/dL (7.8-10.44); Carbon Dioxide 22 mmol/L (23-31); Chloride 112 mmol/L (98-107); Estimated GFR 65; Glucose 66 mg/dL (80-115); Magnesium 1.6 mg/dL (1.6-2.6); Potassium 3.8 mmol/L (3.5-5.1); Sodium 146 mmol/L (136-145)
[2021-10-20 05:31] LABS: Vancomycin, Random 17.8 ug/mL (See Comment)
[2021-10-20 05:43] LABS: Phosphorus 1.8 mg/dL (2.3-4.7)
[2021-10-20] MEDS ORDERED: Furosemide 20 MG/2 ML VIAL SLOW IVP SCH (05:45)
[2021-10-20] MEDS ORDERED: Furosemide 40 MG/4 ML VIAL SLOW IVP SCH (06:00)
[2021-10-20] MEDS ORDERED: Nitroglycerin 2% Ointment 1 INCH/1 GM Packet ONE (06:34)
[2021-10-20] MEDS ORDERED: Nitroglycerin 2% Ointment 1 INCH/1 GM Packet TOP SCH (06:45)
[2021-10-20] MEDS: Pantoprazole 40 MG VIAL IVP SCH (08:22)
[2021-10-20] MEDS: Cefepime 1 GM in Sodium Chloride 0.9% 100 ML IVPB SCH ×2 (08:22→21:29)
[2021-10-20] MEDS: Potassium Chloride 20 MEQ TAB PO SCH (08:23)
[2021-10-20] MEDS: Acetaminophen 325 MG TAB PO SCH ×3 (08:23→21:30)
[2021-10-20] MEDS: Cyanocobalamin (Vitamin B-12) 1,000 MCG TAB PO SCH (08:24)
[2021-10-20] MEDS: Ferrous Sulfate 325 MG TAB PO SCH ×2 (08:24→15:44)
[2021-10-20] MEDS: Calcium Carbonate 600 MG + Vit D TAB PO SCH (08:24)
[2021-10-20] MEDS: Magnesium Oxide 400 MG TAB PO SCH (08:25)
[2021-10-20] MEDS: Heparin 5,000 UNITS/ML VIAL SC SCH ×2 (08:25→21:45)
[2021-10-20] MEDS: levETIRAcetam 500 MG TAB PO SCH ×2 (08:25→21:30)
[2021-10-20] MEDS ORDERED: Vancomycin HCl 500 MG in Sodium Chloride 0.9% 100 ML IVPB SCH (09:00)
[2021-10-20] MEDS: Magnesium 2 GM/50 ML(in water) 2 GM in Premix Bag 1 BAG IVPB SCH ×2 (09:29→11:00)
[2021-10-20] MEDS: Multivitamin W/ Minerals 1 TAB PO SCH (09:34)
[2021-10-20] MEDS: Morphine 2 MG/ML VIAL SLOW IVP PRN ×3 (11:40→20:18)
[2021-10-20] MEDS ORDERED: Gabapentin 300 MG CAP PO SCH (16:00)
[2021-10-20 16:15] LABS: Hemoglobin 7.2 g/dL (13.5-17.5)
[2021-10-21] MEDS: Morphine 2 MG/ML VIAL SLOW IVP PRN ×6 (01:00→21:31)
[2021-10-21 05:20] LABS: Hemoglobin 7.7 g/dL (13.5-17.5); Mean Corpuscular HGB CONC 30.9 g/dL (32.0-36.0); Mean Corpuscular Hemoglobin 28.4 pg (27.0-33.0); Mean Corpuscular Volume 91.9 fl (81.2-95.1); Platelet Count 170 10x3/uL (150-450); RBC Distribution Width 17.6 % (11.5-14.5); Red Blood Cell (RBC) Count 2.71 10x6/uL (4.32-5.72); White Blood Cell (WBC) Count 12.1 10x3/uL (3.5-10.5)
[2021-10-21 05:25] LABS: Vancomycin, Random 19.6 ug/mL (See Comment)
[2021-10-21 05:29] LABS: Albumin 2.6 g/dL (3.4-4.8); Anion Gap 15 mmol/L (10-20); BUN (Urea Nitrogen) 31 mg/dL (8.4-25.7); Calc. Creatinine Clearance 55 mL/min (70-130); Calcium 7.8 mg/dL (7.8-10.44); Carbon Dioxide 22 mmol/L (23-31); Chloride 112 mmol/L (98-107); Estimated GFR 65; Phosphorus 2.1 mg/dL (2.3-4.7); Sodium 145 mmol/L (136-145)
[2021-10-21 05:36] LABS: Glucose 41 mg/dL (80-115)
[2021-10-21] MEDS ORDERED: Dextrose 50% Abboject 50 ML SYRINGE ONE (05:51)
[2021-10-21] MEDS ORDERED: Dextrose 50% Abboject 50 ML SYRINGE SLOW IVP SCH (06:00)
[2021-10-21] MEDS: Sodium Bicarbonate Tab 325 MG TAB PO SCH ×2 (09:19→22:00)
[2021-10-21] MEDS: Carvedilol 6.25 MG TAB PO SCH ×2 (09:19→21:45)
[2021-10-21] MEDS: Multivitamin W/ Minerals 1 TAB PO SCH (09:19)
[2021-10-21] MEDS: levETIRAcetam 500 MG TAB PO SCH ×2 (09:19→21:35)
[2021-10-21] MEDS: PHOS-NAK 1 PKT PACK PO SCH ×3 (09:19→23:07)
[2021-10-21] MEDS: Calcium Carbonate 600 MG + Vit D TAB PO SCH (09:19)
[2021-10-21] MEDS: Magnesium Oxide 400 MG TAB PO SCH (09:20)
[2021-10-21] MEDS: Ferrous Sulfate 325 MG TAB PO SCH ×2 (09:20→17:29)
[2021-10-21] MEDS: Potassium Chloride 20 MEQ TAB PO SCH (09:20)
[2021-10-21] MEDS: Acetaminophen 325 MG TAB PO SCH ×3 (09:21→21:35)
[2021-10-21] MEDS: Cefepime 1 GM in Sodium Chloride 0.9% 100 ML IVPB SCH ×2 (09:22→21:32)
[2021-10-21] MEDS: Pantoprazole 40 MG VIAL IVP SCH (09:24)
[2021-10-21] MEDS: Cyanocobalamin (Vitamin B-12) 1,000 MCG TAB PO SCH (09:24)
[2021-10-21] MEDS: Heparin 5,000 UNITS/ML VIAL SC SCH ×2 (09:25→21:36)
[2021-10-21] MEDS: HYDROcodone/Acetaminophen 10/325 mg Tablet PO PRN (22:02)
[2021-10-22] MEDS: Morphine 2 MG/ML VIAL SLOW IVP PRN ×3 (01:25→09:23)
[2021-10-22] MEDS: HYDROcodone/Acetaminophen 10/325 mg Tablet PO PRN ×2 (02:11→05:34)
[2021-10-22 03:56] LABS: #Eosinphils 0.1 10x3/uL (0.0-0.5); #Monocytes 0.8 10x3/uL (0.0-1.1); #Neutrophils 7.4 10x3/uL (1.5-8.4); %Basophils 0.3 % (0.0-2.0); %Eosinophils 1.4 % (0.0-6.0); %Lymphocytes 17.6 % (18.0-47.0); %Monocytes 7.3 % (0.0-10.0); %Neutrophils 72.3 % (40.0-75.0); Hemoglobin 7.2 g/dL (13.5-17.5); Mean Corpuscular Hemoglobin 28.5 pg (27.0-33.0); Mean Corpuscular Volume 91.7 fl (81.2-95.1); Mean Platelet Volume 8.4 fl (7.4-10.4); Platelet Count 147 10x3/uL (150-450); RBC Distribution Width 17.4 % (11.5-14.5); Red Blood Cell (RBC) Count 2.53 10x6/uL (4.32-5.72); White Blood Cell (WBC) Count 10.2 10x3/uL (3.5-10.5)
[2021-10-22 04:12] LABS: Albumin 2.3 g/dL (3.4-4.8); Anion Gap 12 mmol/L (10-20); BUN (Urea Nitrogen) 29 mg/dL (8.4-25.7); BUN/Creatinine Ratio 23.77; Calc. Creatinine Clearance 55 mL/min (70-130); Calcium 7.5 mg/dL (7.8-10.44); Carbon Dioxide 22 mmol/L (23-31); Chloride 113 mmol/L (98-107); Estimated GFR 66; Glucose 67 mg/dL (80-115); Phosphorus 1.5 mg/dL (2.3-4.7); Potassium 4.4 mmol/L (3.5-5.1); Sodium 143 mmol/L (136-145)
[2021-10-22] MEDS ORDERED: Potassium Phosphate 30 MMOL in Sodium Chloride 0.9% 250 ML 250 ML IVPB SCH (06:15)
[2021-10-22 06:28] LABS: Magnesium 1.9 mg/dL (1.6-2.6)
[2021-10-22] MEDS: Ferrous Sulfate 325 MG TAB PO SCH (09:04)
[2021-10-22] MEDS: Carvedilol 6.25 MG TAB PO SCH (09:04)
[2021-10-22] MEDS: Sodium Bicarbonate Tab 325 MG TAB PO SCH (09:04)
[2021-10-22] MEDS: Multivitamin W/ Minerals 1 TAB PO SCH (09:04)
[2021-10-22] MEDS: Magnesium Oxide 400 MG TAB PO SCH (09:05)
[2021-10-22] MEDS: Calcium Carbonate 600 MG + Vit D TAB PO SCH (09:05)
[2021-10-22] MEDS: levETIRAcetam 500 MG TAB PO SCH (09:05)
[2021-10-22] MEDS: Acetaminophen 325 MG TAB PO SCH (09:05)
[2021-10-22] MEDS: Cyanocobalamin (Vitamin B-12) 1,000 MCG TAB PO SCH (09:05)
[2021-10-22] MEDS: Potassium Chloride 20 MEQ TAB PO SCH (09:05)
[2021-10-22] MEDS: Cefepime 1 GM in Sodium Chloride 0.9% 100 ML IVPB SCH (09:06)
[2021-10-22] MEDS: Heparin 5,000 UNITS/ML VIAL SC SCH (09:07)
[2021-10-22 11:41] VITALS: BP 141/73; TEMP 98
== END 2021-10-22 14:30 | disposition home or self-care (01) | DRG 698 ==
LOC: CSHERS 11:50 → CSHIMCU 14:17 → CSHTELE 10-18 20:48
PROVIDERS: ADMIT Internal Medicine Geriatric Medicine; ATTEND Hospitalist
PROC: 3E03329 Introduction of Other Anti-infective into Peripheral Vein, Percutaneous Approach (ICD-10-PCS; 2021-10-13)
PROC: 30233J1 Transfusion of Nonautologous Serum Albumin into Peripheral Vein, Percutaneous Approach (ICD-10-PCS; 2021-10-19)
PROC: 30233N1 Transfusion of Nonautologous Red Blood Cells into Peripheral Vein, Percutaneous Approach (ICD-10-PCS; principal; 2021-10-20)
DX: T83.511A Infection and inflammatory reaction due to indwelling urethral catheter, initial encounter (principal); A41.9 Sepsis, unspecified organism; J18.9 Pneumonia, unspecified organism; L89.324 Pressure ulcer of left buttock, stage 4; L89.314 Pressure ulcer of right buttock, stage 4; L89.154 Pressure ulcer of sacral region, stage 4; R65.20 Severe sepsis without septic shock; G93.41 Metabolic encephalopathy; N30.00 Acute cystitis without hematuria; N17.9 Acute kidney failure, unspecified; G82.20 Paraplegia, unspecified; E87.2 Acidosis; E87.1 Hypo-osmolality and hyponatremia; M86.69 Other chronic osteomyelitis, multiple sites; E87.3 Alkalosis; I10 Essential (primary) hypertension; L89.899 Pressure ulcer of other site, unspecified stage; E87.5 Hyperkalemia; F17.210 Nicotine dependence, cigarettes, uncomplicated; N31.9 Neuromuscular dysfunction of bladder, unspecified; E86.0 Dehydration; R53.1 Weakness; E83.51 Hypocalcemia; E87.6 Hypokalemia; R06.03 Acute respiratory distress; D53.9 Nutritional anemia, unspecified; Q54.8 Other hypospadias; T14.8XXS Other injury of unspecified body region, sequela; E83.42 Hypomagnesemia; E83.39 Other disorders of phosphorus metabolism; R09.89 Other specified symptoms and signs involving the circulatory and respiratory systems; Z20.822 Contact with and (suspected) exposure to COVID-19; Z74.01 Bed confinement status; Z93.3 Colostomy status; Z89.612 Acquired absence of left leg above knee; Z89.611 Acquired absence of right leg above knee; Z91.018 Allergy to other foods; Z71.6 Tobacco abuse counseling; Z79.899 Other long term (current) drug therapy
CPT/HCPCS: 36415; 36416; 36430; 71045; 74176; 80048; 80069; 80202; 81001; 83605; 83735; 83880; 84100; 84145; 85025; 85027; 86850; 86900; 86901; 86922; 87040; 87086; 93005; 93010; 96374; 96375; 97139; C9113; J0610; J0692; J1644; J1940; J2270; J2405; J3370; J3475; J3490; J7050; J7070; J7120; J7999; P9016; P9047; U0002; U0003; U0005